=== PATIENT | female | born 1980 | race Caucasian/White ===

== ENCOUNTER 2016-10-23 15:28 | Emergency (ER) | payer BC ==
[2016-10-23] MEDS ORDERED: Ketorolac 60 MG/2 ML SDV IM ONE (15:46)
[2016-10-23] MEDS ORDERED: Diphtheria,Pertussis(Acell),Tetanus Vaccine 0.5 ML SDV IM ONE (15:46)
[2016-10-23] MEDS ORDERED: Bacitracin Oint 1 GM U/D Packet TOP ONE (15:47)
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
[2016-10-23 17:27] VITALS: BP 129/91
== END 2016-10-23 16:25 | disposition home or self-care (01) ==
LOC: LL.ED 15:28
DX: T23.252A Burn of second degree of left palm, initial encounter (principal); T31.0 Burns involving less than 10% of body surface; I10 Essential (primary) hypertension; F41.9 Anxiety disorder, unspecified; Z88.8 Allergy status to other drugs, medicaments and biological substances; Z79.899 Other long term (current) drug therapy
CPT/HCPCS: 90471; 90715; 96372; 99283; J1885